=== PATIENT | female | born 1995 | race Caucasian/White ===

== ENCOUNTER 2016-11-05 19:52 | Emergency (ER) | payer OTHER ==
[2016-11-05 21:15] LABS: UA SPECIFIC GRAVITY 1.015 (1.005-1.035); microscopic required? YES; urine erythrocyte 1+ (NEGATIVE)
[2016-11-05 21:18] LABS: BASOPHIL % 0.2 % (0-2); PLATELET COUNT 268 x10^3mcL (130-400); RED CELL DISTRIBUTION WIDTH 13.1 % (11.5-14.5)
[2016-11-06 00:10] VITALS: BP 107/82
== END 2016-11-06 02:02 | disposition home or self-care (01) ==
LOC: ED 19:52
PROVIDERS: Emergency Medicine
DX: O20.0 Threatened abortion (principal); O23.41 Unspecified infection of urinary tract in pregnancy, first trimester; Z31.82 Encounter for Rh incompatibility status; Z3A.08 8 weeks gestation of pregnancy
CPT/HCPCS: 36415; J1460

== ENCOUNTER 2017-08-05 01:41 | Inpatient (IN) | payer OTHER ==
[~2017-08-05] VITALS: Ht 165.1 cm; Wt 89.0 kg
[2017-08-05 01:45] VITALS: Ht 165.1 cm; Wt 89.0 kg
[2017-08-05 03:22] LABS: BASOPHIL % 0.3 % (0-2); PLATELET COUNT 314 x10^3mcL (130-400)
[2017-08-05 03:25] LABS: CALCIUM 8.5 mg/dL (8.5-10.1); CARBON DIOXIDE 25.9 mmol/L (21-32); CHLORIDE SERUM 102 mmol/L (98-107); CREATININE SERUM 0.6 mg/dL (0.6-1.0); GFR1 > 60 mL/min; GLUCOSE SERUM 108 mg/dL (74-106); POTASSIUM SERUM 3.8 mmol/L (3.5-5.1); SODIUM SERUM 137 mmol/L (136-145)
[2017-08-05 03:30] LABS: ALBUMIN 3.6 g/dL (3.4-5.0); ALKALINE PHOSPHATASE 99 U/L (46-116); ALT/SGPT 399 U/L (14-59); AST/SGOT 570 U/L (15-37); BILIRUBIN TOTAL 1.72 mg/dL (0.20-1.00); TOTAL PROTEIN, SERUM 7.7 g/dL (6.4-8.2)
[2017-08-05 07:59] LABS: CHOLESTEROL/HDL RATIO 3.6; MAGNESIUM 2.3 mg/dL (1.8-2.4); PHOSPHOROUS 3.5 mg/dL (2.5-4.9)
[2017-08-05 08:02] LABS: T3 TOTAL 1.22 ng/mL
[2017-08-05 08:08] LABS: UA SPECIFIC GRAVITY 1.015 (1.005-1.035); microscopic required? YES; urine erythrocyte 3+ (NEGATIVE)
[2017-08-05 08:26] LABS: AMPHETAMINE QUAL UR NONE DETECTED (NEG <=1000)
[2017-08-05 08:45] LABS: FREE T4 1.15 ng/dL (0.76-1.46); FREE THYROXINE INDEX 3.3 ug/dL (1.4-4.5); T4(THYROXINE) 10.2 ug/dL (4.7-13.3)
[2017-08-05 10:53] VITALS: BP 108/71
[2017-08-05 13:09] VITALS: BP 121/77
[2017-08-05 18:10] VITALS: BP 110/70
[2017-08-05 20:41] VITALS: BP 112/62
[2017-08-06 05:27] VITALS: BP 111/75
[2017-08-06 07:02] LABS: BASOPHIL % 0.4 % (0-2); PLATELET COUNT 276 x10^3mcL (130-400)
[2017-08-06 07:52] LABS: RED CELL DISTRIBUTION WIDTH 15.8 % (11.5-14.5)
[2017-08-06 10:34] LABS: ALBUMIN 3.4 g/dL (3.4-5.0); ALKALINE PHOSPHATASE 106 U/L (46-116); ALT/SGPT 435 U/L (14-59); AST/SGOT 174 U/L (15-37); BILIRUBIN DIRECT 0.25 mg/dL (0.0-0.2); BILIRUBIN TOTAL 0.7 mg/dL (0.20-1.00); CALCIUM 8.2 mg/dL (8.5-10.1); CARBON DIOXIDE 26.5 mmol/L (21-32); CHLORIDE SERUM 105 mmol/L (98-107); CREATININE SERUM 0.7 mg/dL (0.6-1.0); GFR1 > 60 mL/min; GLUCOSE SERUM 91 mg/dL (74-106); MAGNESIUM 2.2 mg/dL (1.8-2.4); PHOSPHOROUS 3.4 mg/dL (2.5-4.9); POTASSIUM SERUM 3.8 mmol/L (3.5-5.1); SODIUM SERUM 140 mmol/L (136-145); TOTAL PROTEIN, SERUM 6.2 g/dL (6.4-8.2)
[2017-08-06] MEDS ORDERED: NORCO1 TA2 PO (13:33)
[2017-08-06] MEDS ORDERED: COL100 PO (13:33)
[2017-08-06 13:42] VITALS: BP 111/75
[2017-08-06 16:00] VITALS: BP 115/66
== END 2017-08-06 16:30 | disposition home or self-care (01) | DRG 263 ==
LOC: ED 01:41 → MU 06:59 → DU 06:59 → MU 13:15
PROVIDERS: Emergency Medicine; Family Medicine; Surgery
PROC: 0FT44ZZ Resection of Gallbladder, Percutaneous Endoscopic Approach (ICD-10-PCS; 2017-08-05)
PROC: BF131ZZ Fluoroscopy of Gallbladder and Bile Ducts using Low Osmolar Contrast (ICD-10-PCS; principal; 2017-08-05 10:00)
DX: K80.63 Calculus of gallbladder and bile duct with acute cholecystitis with obstruction (principal); N17.0 Acute kidney failure with tubular necrosis; E78.5 Hyperlipidemia, unspecified; R31.9 Hematuria, unspecified; Z82.49 Family history of ischemic heart disease and other diseases of the circulatory system; Z83.3 Family history of diabetes mellitus
CPT/HCPCS: 83880; 84439; C1758; C9113; G0480; J0330; J2175; J2250; J2405; J2543; J2704; J2710; J3010; J3490; J7030; J7120; Q0092; Q9967

== ENCOUNTER 2018-04-27 16:57 | Emergency (ER) | payer OTHER ==
[~2018-04-27] VITALS: Ht 170.2 cm; Wt 91.6 kg
[~2018-04-27 16:57] MED LIST: COL100 PO; NORCO1 TA2 PO
[2018-04-27 17:02] VITALS: Ht 170.2 cm; Wt 91.6 kg
[2018-04-27 18:55] LABS: BASOPHIL % 0.2 % (0-2); PLATELET COUNT 238 x10^3mcL (130-400)
[2018-04-27 19:01] LABS: RED CELL DISTRIBUTION WIDTH 15.4 % (11.5-14.5)
[2018-04-27 19:02] LABS: CALCIUM 8.4 mg/dL (8.5-10.1); CARBON DIOXIDE 22.6 mmol/L (21-32); CHLORIDE SERUM 99 mmol/L (98-107); CREATININE SERUM 0.6 mg/dL (0.6-1.0); GFR1 > 60 mL/min; GLUCOSE SERUM 102 mg/dL (74-106); POTASSIUM SERUM 3.4 mmol/L (3.5-5.1); SODIUM SERUM 134 mmol/L (136-145)
[2018-04-27 19:06] LABS: ALKALINE PHOSPHATASE 84 U/L (46-116); ALT/SGPT 16 U/L (14-59); AST/SGOT 9 U/L (15-37); BILIRUBIN TOTAL 0.56 mg/dL (0.20-1.00); TOTAL PROTEIN, SERUM 7.7 g/dL (6.4-8.2)
[2018-04-27 19:10] LABS: ALBUMIN 2.9 g/dL (3.4-5.0)
[2018-04-27 19:31] LABS: UA SPECIFIC GRAVITY 1.015 (1.005-1.035); microscopic required? YES; urine erythrocyte 1+ (NEGATIVE)
[2018-04-27 20:42] VITALS: BP 112/53
== END 2018-04-27 20:42 | disposition home or self-care (01) ==
LOC: ED 16:57
PROVIDERS: Emergency Medicine
DX: O23.42 Unspecified infection of urinary tract in pregnancy, second trimester (principal); O26.892 Other specified pregnancy related conditions, second trimester; J11.1 Influenza due to unidentified influenza virus with other respiratory manifestations; Z3A.01 Less than 8 weeks gestation of pregnancy
CPT/HCPCS: 87804; J0696; J7613